=== PATIENT | female | born 1940 | race Caucasian/White ===

== ENCOUNTER → 2019-08-20 | Outpatient (CLI) | payer MEDICARE, BC ==
--- NOTE | 2019-08-20 11:19 | RAD ---
EXAM: Dual energy x-ray absorptiometry (DEXA). HISTORY: Postmenopausal female presents for osteoporosis screening. COMPARISON: None. TECHNIQUE: Dual energy x-ray absorptiometry of the lumbar spine and right hip was performed. Calculation of bone mineral density based on standard deviations above or below the expected young adult normal value (T-score) was completed. FINDINGS: The average bone mineral density in the first through third lumbar vertebrae is 1.102 g/cmxcm, corresponding with a T-score of -0.6. The average total bone mineral density in the right hip is 0.786 g/cmxcm, corresponding with a T-score of -1.4. The bone mineral density localized to the right femoral neck corresponds with a T-score of -2.6. IMPRESSION: 1. Osteopenia measured for the total right hip. There is osteoporosis measured at the right femoral neck. 2. Normal bone mineral density measured at the lumbar spine. Note: Definitions established by the World Health Organization: 1. Normal: T-score is -1.0 or above. 2. Osteopenia: T-score is between -1.0 and -2.5 . 3. Osteoporosis: T-score is -2.5 or below. Electronically signed by: Ely Munguia MD (08/20/2019 11:16 AM) [facility]
== END | disposition home or self-care (01) ==
LOC: DXRAD 09:58
PROVIDERS: ATTEND Registered Nurse
DX: M81.0 Age-related osteoporosis without current pathological fracture (principal); M85.88 Other specified disorders of bone density and structure, other site; Z78.0 Asymptomatic menopausal state
CPT/HCPCS: 77080

== ENCOUNTER → 2020-10-29 | Outpatient (CLI) | payer MEDICARE, BC ==
[2020-10-29 13:37] LABS: BASO % 1 % (0-3); EOS # 0.2 x10^3/uL (0.0-0.7); EOS % 3 % (0-3); HEMATOCRIT 43.1 % (36.0-47.0); HEMOGLOBIN 14.1 g/dL (12.0-15.5); LYMPH # 1.3 x10^3/uL (1.0-4.8); LYMPH % 26 % (24-48); MEAN CORPUSCULAR HEMOGLOBIN 30 pg (25-35); MEAN CORPUSCULAR HGB CONC 33 g/dL (31-37); MEAN CORPUSCULAR VOLUME 91 fL (79-100); MONO # 0.4 x10^3/uL (0.0-1.1); MONO % 8 % (0-9); NEUT # 3.1 x10^3uL (1.8-7.7); NEUT % 62 % (31-73); PLATELET COUNT 201 x10^3/uL (140-400); RED BLOOD COUNT 4.72 x10^6/uL (3.50-5.40); RED CELL DISTRIBUTION WIDTH 13.9 % (11.5-14.5)
[2020-10-29 13:59] LABS: ALBUMIN 4.2 g/dL (3.4-5.0); ALBUMIN/GLOBULIN RATIO 1.2 (1.0-1.7); CALCIUM 9.6 mg/dL (8.5-10.1); GFR 53.3; POTASSIUM 4.4 mmol/L (3.5-5.1); TOTAL BILIRUBIN 0.8 mg/dL (0.2-1.0); TOTAL PROTEIN 7.6 g/dL (6.4-8.2)
[2020-10-30 12:16] LABS: THYROID STIM HORMONE (TSH) 0.964 uIU/mL (0.358-3.740)
== END ==
LOC: LAB 12:02
PROVIDERS: ATTEND Internal Medicine Interventional Cardiology
DX: I10 Essential (primary) hypertension (principal)
CPT/HCPCS: 36415; 80053; 80061; 84443; 85025

== ENCOUNTER → 2020-11-15 | Outpatient (CLI) | payer MEDICARE, BC ==
[2020-11-15 13:44] LABS: CALCIUM 9.7 mg/dL (8.5-10.1); CREATININE 1.2 mg/dL (0.6-1.0); GFR 43.2; POTASSIUM 4.4 mmol/L (3.5-5.1)
== END ==
LOC: LAB 13:04
PROVIDERS: ATTEND Internal Medicine Interventional Cardiology
DX: I48.91 Unspecified atrial fibrillation (principal)
CPT/HCPCS: 36415; 80048

== ENCOUNTER → 2021-03-02 | Outpatient (CLI) | payer MEDICARE, BC ==
--- NOTE | 2021-03-02 14:04 | RAD ---
DATE: 03/02/2021 EXAM: DIGITAL DIAGNOSTIC BILATERAL HISTORY: Left breast burning pain. COMPARISON: None available. Interpreted as new baseline examination. CAD was utilized. FINDINGS: The breast parenchyma is primarily fatty replaced. A few benign calcifications are identified. There is a inner posterior left breast loop recorder. There are no dominant suspicious masses, suspicious microcalcifications or evidence of architectural distortion. IMPRESSION: No mammographic evidence of malignancy. Recommend routine screening. BI-RADS CATEGORY: 2 BENIGN FINDING RECOMMENDED FOLLOW-UP: 12M 12 MONTH FOLLOW-UP PQRS compliance statement: Patient information was entered into a reminder system with a target due date for the next mammogram. Mammography is a sensitive method for finding small breast cancers, but it does not detect them all and is not a substitute for careful clinical examination. A negative mammogram does not negate a clinically suspicious finding and should not result in delay in biopsying a clinically suspicious abnormality. "Our facility is accredited by the [employer] Mammography Program."
== END ==
LOC: MAMMO 13:24
PROVIDERS: ATTEND Physician Assistant Medical
DX: N64.4 Mastodynia (principal)
CPT/HCPCS: 77066

== ENCOUNTER → 2021-06-08 | Outpatient (CLI) | payer MEDICARE, BC ==
--- NOTE | 2021-06-08 15:22 | RAD ---
EXAM: Left knee, 3 views. HISTORY: Pain. COMPARISON: None. FINDINGS: 3 views of the left knee are obtained. There is no fracture, dislocation or subluxation. Th ere is mild medial compartment spurring and medial and lateral compartment chondrocalcinosis. There i s a small joint effusion. There is enthesopathy along the superior patella. There are benign bone isl ands. IMPRESSION: 1. 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 2. No acute osseous finding. Electronically signed by: Ely Munguia MD (06/08/2021 3:20 PM) [id number]
== END ==
LOC: RAD 14:50
PROVIDERS: ATTEND Physician Assistant Medical
DX: M17.12 Unilateral primary osteoarthritis, left knee (principal); M25.462 Effusion, left knee; M76.892 Other specified enthesopathies of left lower limb, excluding foot; M11.262 Other chondrocalcinosis, left knee
CPT/HCPCS: 73562

== ENCOUNTER → 2021-08-23 | Outpatient (CLI) | payer MEDICARE, BC ==
--- NOTE | 2021-08-23 14:18 | RAD ---
CT of the abdomen and pelvis without contrast. 08/23/2021 1:08 PM Indication: Reason: ruq pain / Spl. Instructions: / History: Comparison Study: None. Technique: Multidetector CT imaging of the abdomen pelvis is obtained without administration of contr ast. Findings: Visualized lung bases are unremarkable. The gallbladder is surgically absent. Calcified granulomas ar e noted within the liver. Many calcified granulomas are noted within the spleen, which is otherwise u nremarkable. The adrenal glands are unremarkable. Pancreas is unremarkable. The right kidney is unrem arkable. There is a partially exophytic lesion in the anterior left kidney measuring 1.2 cm in diamet er consistent with a small cyst. 2 hyperdense, rounded lesions are seen in the left mid kidney measur es 6 mm and 7 mm respectively. These most likely represent small hyperdense cysts. Attention on follo w-up studies recommended. Probable duodenal diverticulum noted. There is no evidence of bowel obstruc tion. Distal colonic diverticulosis noted without evidence of acute diverticulitis. Mildly increased stool seen throughout the colon. Findings could reflect constipation. The bladder is decompressed. Hy sterectomy noted. No free fluid or free air seen in the abdomen or pelvis. Right-sided laminectomy an d fusion changes noted at L4-S1. Artifact limits the evaluation. Bone graft material present. No acut e osseous abnormality is identified. IMPRESSION: 1.Mildly increased stool noted within the colon. Findings could reflect constipation. 2. No other acute intra-abdominal abnormality is identified CT DOSING PQRS STATEMENT: One or more of the following individualized dose reduction techniques were utilized for this examinat ion: 1. Automated exposure control 2. Adjustment of the mA and/or kV according to patient size 3. Use of iterative reconstruction technique Electronically signed by: Chin Clemons MD (08/23/2021 2:15 PM) [id number]
--- NOTE | 2021-08-23 19:44 | RAD ---
PA and lateral chest radiographs 08/23/2021 CLINICAL HISTORY: Chest pain. PA and lateral digital radiographs of the chest were obtained. No previous studies are available for comparison. The patient is post median sternotomy. The cardiac silhouette is mildly enlarged. The tho racic aorta is tortuous. Atherosclerotic calcification of the thoracic aorta is seen. No acute pulmon edna infiltrate is noted. No pneumothorax or pleural effusion is seen. Surgical clips are seen within the right upper quadrant abdomen consistent with a cholecystectomy. There is diffuse osteopenia of th e visualized bony structures. 3 small threaded screws are seen within the right humeral head. Degener ative changes are seen involving the thoracic spine. IMPRESSION: No acute abnormality is seen. Electronically signed by: Dax Araiza MD (08/23/2021 7:42 PM) [id number]
== END ==
LOC: CT 13:02
PROVIDERS: ATTEND Physician Assistant Medical
DX: K57.32 Diverticulitis of large intestine without perforation or abscess without bleeding (principal); K75.3 Granulomatous hepatitis, not elsewhere classified; R10.11 Right upper quadrant pain; N64.4 Mastodynia
CPT/HCPCS: 71046; 74176

== ENCOUNTER → 2021-11-14 | Outpatient (CLI) | payer MEDICARE, BC ==
--- NOTE | 2021-11-14 12:41 | RAD ---
EXAM: Nuclear gastric emptying scan. HISTORY: Pain. COMPARISON: None. TECHNIQUE: Serial static images were obtained over the stomach following oral administration of 2 mCi 99m-Tc sulfur colloid. FINDINGS: The stomach empties into the small bowel without evidence of reflux in the area of the esop hagus. Gastric retention percents: 1 hour 60% (normal range 34.8-91%) 2 hour 43% (normal range 2.7-60%) 3 hour 26% (normal range 0.5-28%) 4 hour 11% (normal range 0-10%) The estimated time for half emptying of gastric contents, i.e. 'gastric emptying time' is 108 minutes (normal is 66 +/- 22 minutes). IMPRESSION: Borderline delayed gastric emptying at 3 hours and 4 hours and delayed gastric emptying h soy-time. Electronically signed by: Ely Munguia MD (11/14/2021 12:38 PM) [id number]
== END ==
LOC: NM 07:45
PROVIDERS: ATTEND Internal Medicine Gastroenterology
DX: K30 Functional dyspepsia (principal)
CPT/HCPCS: 78264; A9541

== ENCOUNTER → 2021-11-28 | Outpatient (CLI) | payer MEDICARE, BC ==
--- NOTE | 2021-11-29 14:31 | RAD ---
XR BILAT FEET 3 VIEWS History: Reason: BILATERAL FEET PAIN. RIGHT WORSE THAN LEFT / Spl. Instructions: / History: Technique: 3 views bilateral feet. Comparison: None. Findings: Right foot: Mild first MTP DJD. No dislocation. No acute fracture. Tiny plantar calcaneal spur. Posto perative changes within the medial ankle. Left foot: Mild first MTP DJD. No dislocation. No acute fracture. Small plantar calcaneal spur. Impression: 1. Mild bilateral first MTP DJD, right greater than left. Electronically signed by: Maciel Alberto DO (11/29/2021 2:29 PM) [id number]
== END ==
LOC: RAD 09:42
PROVIDERS: ATTEND Podiatrist
DX: M19.071 Primary osteoarthritis, right ankle and foot (principal); M19.072 Primary osteoarthritis, left ankle and foot; M77.32 Calcaneal spur, left foot
CPT/HCPCS: 73630-50

== ENCOUNTER 2022-03-20 09:36 | Observation (INO) | payer MEDICARE, BC ==
[~2022-03-20] VITALS: Ht 152.4 cm; Wt 60.0 kg
--- NOTE | 2022-03-20 10:13 | PHYS DOC ---
Past History Additional Past Medical Histor: history of triple bipass 2004, high cholesterol Past Surgical History: Other Additional Past Surgical Histo: back surgery, shoulder surgery Alcohol Use: Rarely General Adult EDM: Chief Complaint: CHEST PAIN-CARDIAC NATURE HPI: HPI: Patient is an 81-year-old female who presents to the emergency department for chest pain. Patient reports around 530 this morning she was woken up from her sleep with left-sided chest pain she reports that it got better ended up resolving around 7:00 and she went back to bed but woke up again with the chest pain. She rates her pain 4 out of 10. The pain does not radiate. She reports taking 2 full-size aspirins prior to arrival. Chest pain is worse with deep inspiration and palpation. She describes it as a tightness. She reports shortness of breath. Patient denies any nausea, vomiting or dizziness. Patient has a history of CABG, hyperlipidemia, diabetes, GERD, hypertension. Review of Systems: Review of Systems: Respiratory: See HPI Cardiovascular: See HPI GI: See HPI Musculoskeletal: Reports chest wall tenderness with palpation Neurologic: See HPI Current Medications: Current Meds: Current Medications Medications (Trade) Dose Ordered Sig/Yue Start Time Stop Time Status Last Admin Dose Admin Aspirin (Aspirin Chewable) 324 mg 1X ONCE 03/20/22 10:15 03/20/22 10:16 Allergies: Allergies: Allergies Coded Allergies Type Severity Reaction Last Updated Verified doxycycline Allergy Mild rash and redness 03/20/22 Yes simvastatin Allergy Mild "slows me down" 03/20/22 Yes Physical Exam: PE: Constitutional: Well developed, well nourished, no acute distress, non-toxic appearance. [] HENT: Normocephalic, atraumatic, bilateral external ears normal, oropharynx moist, no oral exudates, nose normal. [] Eyes: PERRL, EOMI, conjunctiva normal, no discharge. [] Neck: Normal range of motion, no tenderness, supple, no stridor. [] Cardiovascular:Heart rate regular rhythm, no murmur [] Lungs & Thorax: Bilateral breath sounds clear to auscultation, left-sided chest wall tenderness with palpation [] Abdomen: Bowel sounds normal, soft, no tenderness, no masses, no pulsatile m asses. [] Skin: Warm, dry, no erythema, no rash. [] Back: No tenderness, normal range of motion Extremities: No tenderness, no cyanosis, no clubbing, ROM intact, no edema. [] Neurologic: Alert and oriented X 3, normal motor function, normal sensory function, no focal deficits noted. [] Psychologic: Affect normal, judgement normal, mood normal. [] Current Patient Data: Labs: Laboratory Tests Test 03/20/22 10:50 White Blood Count 6.0 x10^3/uL Red Blood Count 4.36 x10^6/uL Hemoglobin 13.2 g/dL Hematocrit 39.4 % Mean Corpuscular Volume 90 fL Mean Corpuscular Hemoglobin 30 pg Mean Corpuscular Hemoglobin Concent 34 g/dL Red Cell Distribution Width 14.3 % Platelet Count 187 x10^3/uL Neutrophils (%) (Auto) 61 % Lymphocytes (%) (Auto) 27 % Monocytes (%) (Auto) 9 % Eosinophils (%) (Auto) 3 % Basophils (%) (Auto) 1 % Neutrophils # (Auto) 3.6 x10^3uL Lymphocytes # (Auto) 1.6 x10^3/uL Monocytes # (Auto) 0.5 x10^3/uL Eosinophils # (Auto) 0.2 x10^3/uL Basophils # (Auto) 0.0 x10^3/uL Sodium Level 135 mmol/L Potassium Level 5.1 mmol/L Chloride Level 105 mmol/L Carbon Dioxide Level 22 mmol/L Anion Gap 8 Blood Urea Nitrogen 16 mg/dL Creatinine 0.8 mg/dL Estimated GFR (Cockcroft-Gault) 68.8 BUN/Creatinine Ratio 20 Glucose Level 125 mg/dL Calcium Level 9.6 mg/dL Total Bilirubin 1.0 mg/dL Aspartate Amino Transf (AST/SGOT) 46 U/L Alanine Aminotransferase (ALT/SGPT) 33 U/L Alkaline Phosphatase 52 U/L Troponin I High Sensitivity 12 ng/L Total Protein 7.7 g/dL Albumin 4.0 g/dL Albumin/Globulin Ratio 1.1 Current Medications Medications (Trade) Dose Ordered Sig/Yue Route PRN Reason Start Time Stop Time Status Last Admin Dose Admin Aspirin (Aspirin Chewable) 324 mg 1X ONCE PO 03/20/22 10:15 03/20/22 10:10 DC Morphine Sulfate (Morphine 2mg Syringe) 2 mg 1X ONCE IV 03/20/22 10:30 03/20/22 10:31 DC 03/20/22 11:10 Vital Signs: Vital Signs Date Time Temp Pulse Resp B/P (MAP) Pulse Ox O2 Delivery O2 Flow Rate FiO2 03/20/22 09:46 98.3 75 20 156/71 (99) Room Air EKG: EKG: EKG performed by ER staff at 935 shows sinus rhythm with a rate of 66, QTc is 472, no STEMI Radiology/Procedures: Radiology/Procedures: []PROCEDURE: PORTABLE CHEST 1V EXAMINATION: Chest radiograph. VIEWS: Single AP view of the chest COMPARISON: 08/17/2021 INDICATION:81 years, Female, chest pain. FINDINGS: Normal cardiomediastinal silhouette. Tortuous thoracic aorta with associated atherosclerotic disease. Median sternotomy wires are intact. Increased bibasilar interstitial reticulations. No focal consolidation. No pleural effusion or pneumothorax. No acute osseous process. IMPRESSION: Increased bibasilar reticulations may represent mild interstitial pulmonary edema and/or atypical pneumonia. Electronically signed by: Kat Roberts DO (03/20/2022 10:22 AM) [facility] DICTATED AND SIGNED BY: KAT ROBERTS DO DATE: 03/20/22 1019 CC: EMERGENCY,DEPARTMENT; [facility] APRN; BOB MONTGOMERY PA ~ Heart Score: C/O Chest Pain: Yes HEART Score for Chest Pain: HEART Score for Chest Pain Response (Comments) Value History Moderately Suspicious 1 ECG Nonspecific Repolarizatio 1 Age > 65 2 Risk Factors >3 Risk Factors or Hx CAD 2 Troponin < Normal Limit 0 Total 6 Risk Factors: Risk Factors: DM, Current or recent (<one month) smoker, HTN, HLP, family history of CAD, obesity. Risk Scores: Score 0 - 3: 2.5% MACE over next 6 weeks - Discharge Home Score 4 - 6: 20.3% MACE over next 6 weeks - Admit for Clinical Observation Score 7 - 10: 72.7% MACE over next 6 weeks - Early Invasive Strategies Course & Med Decision Making: Course & Med Decision Making Pertinent Labs and Imaging studies reviewed. (See chart for details) [] Patient presents to the emergency department for left-sided chest pain. The chest pain is reproducible with deep inspiration and palpation. Patient reports taking 2 full-strength aspirins prior to ER arrival. Patient does have significant risk factors including coronary artery bypass, hyperlipidemia, diabetes, age and hypertension. Patient's lab work is unremarkable, her troponin was 12. Patient's chest x-ray shows bibasilar reticulations which could indicate mild interstitial pulmonary edema versus pneumonia per the radiologist. She will be given a dose of antibio tics. Patient's heart score is 6 and she has significant risk factors. Patient was treated with pain medication but reports that that did not improve her chest pain, she was given nitroglycerin and as needed pain medication. Patient will need to be monitored in the emergency department and have serial troponins ordered. I discussed patient's case with Dr. Augustin who agreed to admit the patient under his services. ER bridge orders placed at this time 1147. I discussed patient's findings with her as well as care plan she is agreeable to admission. Ronnie Disclaimer: Ronnie Disclaimer: This electronic medical record was generated, in whole or in part, using a voice recognition dictation system. Departure Departure: Impression: Primary Impression: Chest pain Qualified Codes: R07.9 - Chest pain, unspecified Disposition: ADMITTED INPATIENT Admitting Physician: Sohail Augustin Condition: STABLE Referrals: BOB MONTGOMERY (PCP) [facility] [employer] ATTENDANT Mar 20, 2022 10:13
[2022-03-20] MEDS ORDERED: ASPIRIN CHEWABLE 81 MG TABLET. PO ONE (10:15)
--- NOTE | 2022-03-20 10:24 | RAD ---
EXAMINATION: Chest radiograph. VIEWS: Single AP view of the chest COMPARISON: 08/17/2021 INDICATION:81 years, Female, chest pain. FINDINGS: Normal cardiomediastinal silhouette. Tortuous thoracic aorta with associated atherosclerotic disease. Median sternotomy wires are intact. Increased bibasilar interstitial reticulations. No focal consoli dation. No pleural effusion or pneumothorax. No acute osseous process. IMPRESSION: Increased bibasilar reticulations may represent mild interstitial pulmonary edema and/or atypical pne umonia. Electronically signed by: Caleb Roberts DO (03/20/2022 10:22 AM) [facility]
[2022-03-20] MEDS ORDERED: MORPHINE SULFATE 2 MG/ML DISP.SYRIN. IV ONE (10:30)
[2022-03-20 11:11] LABS: BASO % 1 % (0-3); EOS # 0.2 x10^3/uL (0.0-0.7); EOS % 3 % (0-3); HEMATOCRIT 39.4 % (36.0-47.0); HEMOGLOBIN 13.2 g/dL (12.0-15.5); LYMPH # 1.6 x10^3/uL (1.0-4.8); LYMPH % 27 % (24-48); MEAN CORPUSCULAR HEMOGLOBIN 30 pg (25-35); MEAN CORPUSCULAR HGB CONC 34 g/dL (31-37); MEAN CORPUSCULAR VOLUME 90 fL (79-100); MONO # 0.5 x10^3/uL (0.0-1.1); MONO % 9 % (0-9); NEUT # 3.6 x10^3uL (1.8-7.7); NEUT % 61 % (31-73); PLATELET COUNT 187 x10^3/uL (140-400); RED BLOOD COUNT 4.36 x10^6/uL (3.50-5.40); RED CELL DISTRIBUTION WIDTH 14.3 % (11.5-14.5)
[2022-03-20 11:18] LABS: CALCIUM 9.6 mg/dL (8.5-10.1); CREATININE 0.8 mg/dL (0.6-1.0); GFR 68.8
[2022-03-20 11:20] LABS: POTASSIUM 5.1 mmol/L (3.5-5.1)
[2022-03-20 11:23] LABS: ALBUMIN/GLOBULIN RATIO 1.1 (1.0-1.7); TOTAL PROTEIN 7.7 g/dL (6.4-8.2)
[2022-03-20] MEDS ORDERED: MORPHINE SULFATE 2 MG/ML DISP.SYRIN. IVP PRN (12:00)
[2022-03-20] MEDS: NITROGLYCERIN SUBLINGUAL 0.4 MG BOTTLE OF 25. SL PRN ×2 (12:07→12:29)
[2022-03-20] MEDS ORDERED: cefTRIAXone SODIUM 1 GM VIAL ONE (12:16)
[2022-03-20] MEDS ORDERED: IV NORMAL SALINE 50ML 50 ML ONE (12:16)
[2022-03-20 14:25] VITALS: BP 126/68
--- NOTE | 2022-03-20 17:22 | HP ---
DATE OF SERVICE: 03/20/2022 ADMIT DATE: 03/20/2022 HISTORY OF PRESENT ILLNESS: The patient is an 81-year-old female patient who presented to the Emergency Room of [facility] with a complaint of chest pain that she rated around 8/10 that she was awakened because of that around 5:30 this morning from sleep with pain was mostly in the retrosternal left sided chest pain. Event that the pain has apparently resolved around 7:00 a.m. and she went back to bed, but woke up again with the chest pain. She rates her pain about 4/10. She denies any radiation. She reports taking 2 full-size aspirin prior to arrival. Deep breath makes her pain worse and palpation, she describes as tightness. She reports shortness of breath, but denied any nausea, vomiting or diaphoresis. The patient has had coronary artery disease status post triple bypass in 2003 and she was extensively investigated. She had an EKG done, which showed that she was in sinus rhythm at a rate of 66 with a corrected QT interval of [address] segment elevation myocardial infarction. Her chest x-ray showed increased bibasilar reticulation that represents mild interstitial pulmonary edema and/or atypical pneumonia. She has had lab work done, showed that her CBC was unremarkable. Her chemistry showed she had mild hyperkalemia; however, her first set of troponin I high sensitivity was only 12. Her coronavirus by rapid antigen testing was negative. The patient was admitted given that she has multiple risk factors for coronary artery disease, to do two more sets of cardiac enzymes, check fasting lipid profile and also consult the Cardiology team. PAST MEDICAL HISTORY: Significant for hypertension, hyperlipidemia, type 2 diabetes mellitus. She has also osteoporosis and gastroesophageal reflux disease. PAST SURGICAL HISTORY: Significant for coronary artery bypass graft surgery, PCI with stent deployment, right shoulder surgery, hemorrhoidectomy, back surgery low back, bilateral cataract extraction, appendectomy and total abdominal hysterectomy, bilateral salpingo-oophorectomy. ALLERGIES: She is allergic to DOXYCYCLINE and SIMVASTATIN. MEDICATIONS: She is currently on following medications: She is on sertraline 50 mg once a day, gabapentin 300 mg 2 capsules 4 times a day, Zetia 10 mg at bedtime, Crestor 40 mg daily, aspirin 81 mg once a day, Trulicity 1 injection once a week, amlodipine besylate 2.5 mg 1 tablet at bedtime, famotidine 20 mg at bedtime, ibandronate 100 mg once a month and vitamin D3 [employer] [address] 2 tablets once a day and Protonix 40 mg twice a day. FAMILY HISTORY: She is the only child. Her dad at the age of 89 and mother at age of 94. SOCIAL HISTORY: She is . She has 2 children. Her son at age of 54. Daughter still alive. She has never smoked, drinks alcohol occasionally and does not use any drugs. She did multiple jobs throughout her life. She is currently retired. REVIEW OF SYSTEMS: As per history of present illness. PHYSICAL EXAMINATION: GENERAL: On arrival to the Emergency Room, she looked well and was clearly in no apparent respiratory distress. Slightly pale, but no jaundice, cyanosis, no lymphadenopathy, no thyromegaly, no jugular venous distention. No limb edema. VITAL SIGNS: Her heart rate was 75, blood pressure was 156/71, temperature was 98.3, respiratory rate 20 and oxygen saturation was 100% on room air. HEAD, EYES, EARS, NOSE, AND THROAT: Normocephalic, atraumatic. NECK: Supple. HEART: Showed normal first and second heart sounds. No gallop, rub or murmur. CHEST: Clear to auscultation. No crepitation or rhonchi. ABDOMEN: Distended, soft, nontender. NEUROLOGIC: She was grossly intact. LABORATORY DATA: She was seen in the Emergency Room, has had lab work, showed a white cell count of 6000, hemoglobin 13, hematocrit 39, MCV 90 and platelet count of 187,000 with normal manual differential. Her chemistry showed a serum sodium 135, potassium 5.1, chloride 105, bicarbonate 22, anion gap of 8, BUN 18, creatinine was 0.8. Estimated GFR was 68 mL per minute. Her glucose 125, calcium was 9.6. Total bilirubin normal. Alkaline phosphatase and ALT are normal. AST slightly elevated. Her troponin I high sensitivity was 12. Total protein 7.7, albumin was 4. Her coronavirus by rapid antigen testing was negative. Her chest x-ray showed that there is increased bibasilar reticulation, represents mild interstitial pulmonary edema versus atypical pneumonia. ASSESSMENT AND PLAN: The patient was admitted with chest pain that awakened the patient from sleep. She has multiple risk factors for coronary artery disease. She is known to have hypertension, hyperlipidemia, type 2 diabetes mellitus. She has already had coronary artery bypass surgery and stent deployment. Plan is to reconcile all her medications and do two more sets of cardiac enzymes, check her fasting lipid profile and consult the monument mason tomorrow. MANI DR: Carlos TID: [id number]
[2022-03-20] MEDS ORDERED: PANT40TA6 PO (18:31)
[2022-03-20] MEDS ORDERED: AMLO2.5T5 PO (18:31)
[2022-03-20] MEDS ORDERED: FAMO20TA5 PO (18:31)
[2022-03-20] MEDS ORDERED: CRESTOR40 MG PO (18:31)
[2022-03-20] MEDS ORDERED: SERT50TA PO (18:31)
[2022-03-20] MEDS ORDERED: IBAN150T20 PO (18:31)
[2022-03-20] MEDS ORDERED: ASPI-630 PO (18:31)
[2022-03-20] MEDS ORDERED: EZET10TA20 PO (18:31)
[2022-03-20] MEDS ORDERED: GABA600T7 PO (18:31)
[2022-03-20] MEDS ORDERED: NON FORMULARY ITEM (Gabapentin 600 MG) PO PRN (18:45)
--- NOTE | 2022-03-20 18:45 | NUR ---
PT ARRIVED TO ROOM 123 FROM ED ON PREVIOUS SHIFT. REPORT RECEIVED FROM KARIN OAKLEY. PT HERE FOR C/O CHEST PAIN THAT WOKE HER FROM SLEEP TWICE THIS MORNING. PT DESCRIBED TIGHTNESS IN THE LEFT SIDE OF HER CHEST, RATED 8/10. PT WITH SIGNIFICANT CARDIAC HX, INCLUDING MANY CARDIAC CATHS AND CABG WITH MULT. STENTS. DR. MAI CONSULTED, WILL SEE IN AM. POC DISCUSSED, V/U. CALL LIGHT IN REACH. PT DENIES CURRENT CP. RESTING COMFORTABLY IN BED WITH MUSIC PLAYING ON TABLET.
[2022-03-20 19:00] VITALS: BP 122/62
[2022-03-20] MEDS ORDERED: EZETIMIBE 10 MG TABLET PO SCH (21:00)
[2022-03-20] MEDS ORDERED: amLODIPine BESYLATE 2.5 MG TABLET PO SCH (21:00)
[2022-03-20] MEDS ORDERED: ATORVASTATIN CALCIUM 20 MG TABLET PO SCH (21:00)
[2022-03-20] MEDS ORDERED: FAMOTIDINE 20 MG TABLET PO SCH (21:00)
[2022-03-20] MEDS: PANTOPRAZOLE 40 MG TABLET. PO SCH (21:04)
[2022-03-20 23:00] VITALS: BP 117/63
[2022-03-21 05:00] VITALS: BP 145/73
[2022-03-21 06:23] LABS: BASO % 1 % (0-3); EOS # 0.2 x10^3/uL (0.0-0.7); EOS % 5 % (0-3); HEMATOCRIT 39.9 % (36.0-47.0); HEMOGLOBIN 13.3 g/dL (12.0-15.5); LYMPH # 1.1 x10^3/uL (1.0-4.8); LYMPH % 28 % (24-48); MEAN CORPUSCULAR HEMOGLOBIN 30 pg (25-35); MEAN CORPUSCULAR HGB CONC 33 g/dL (31-37); MEAN CORPUSCULAR VOLUME 91 fL (79-100); MONO # 0.4 x10^3/uL (0.0-1.1); MONO % 10 % (0-9); NEUT # 2.4 x10^3uL (1.8-7.7); NEUT % 57 % (31-73); PLATELET COUNT 159 x10^3/uL (140-400); RED BLOOD COUNT 4.37 x10^6/uL (3.50-5.40); RED CELL DISTRIBUTION WIDTH 13.9 % (11.5-14.5); WHITE BLOOD COUNT 4.1 x10^3/uL (4.0-11.0)
[2022-03-21 06:40] LABS: ALBUMIN 3.5 g/dL (3.4-5.0); ALBUMIN/GLOBULIN RATIO 1.3 (1.0-1.7); CALCIUM 8.9 mg/dL (8.5-10.1); CREATININE 0.9 mg/dL (0.6-1.0); GFR 60.1; POTASSIUM 4.3 mmol/L (3.5-5.1); TOTAL BILIRUBIN 0.8 mg/dL (0.2-1.0); TOTAL PROTEIN 6.2 g/dL (6.4-8.2)
--- NOTE | 2022-03-21 08:29 | PDOC2 ---
SUKUMAR VIEYRA APRN 03/21/22 0829: CARDIAC CONSULT DATE OF CONSULT DOS: DATE: 03/21/22 TIME: 08:25 REASON FOR CONSULT Reason for Consult Chest pain REFERRING PHYSICIAN Referring Physician Rosetta Dunlap APRN SOURCE Source: Chart review, Patient HPI History of Present Illness This is an 81 yo female who presented secondary to chest pain. Patient reports waking up with pain yesterday morning around 5:30. Located in her left chest. Describes as intense stabbing pain. Radiated through to her back. [place] short of breath. Took two ASA and laid back down in bed. Woke back up later and pain persisted, although was less intense, so she came to the ED for further evaluations and treatment. Has some mild pain again yesterday afternoon, but is feeling much better today. PAST MEDICAL HISTORY Cardiovascular: AFIB, CAD, HTN, hyperipidemia GI: GERD Endocrine: Diabetes PAST SURGICAL HISTORY Past Surgical History: CABG, Hysterectomy, Other (right shoulder surgery) FAMILY HISTORY Family History: Other (noncontributory ) SOCIAL HISTORY Smoke: No ALCOHOL: none Drugs: None Lives: Alone CURRENT MEDICATIONS Current Medications Current Medications Aspirin (Aspirin Chewable) 324 mg 1X ONCE PO ; Start 03/20/22 at 10:15; Stop 03/20/22 at 10:10; Status DC Morphine Sulfate (Morphine 2mg Syringe) 2 mg 1X ONCE IV Last administered on 03/20/22at 11:10; Start 03/20/22 at 10:30; Stop 03/20/22 at 10:31; Status DC Nitroglycerin (Nitrostat) 0.4 mg PRN Q5MIN PRN SL CHEST PAIN Last administered on 03/20/22at 12:29; Start 03/20/22 at 11:45 Morphine Sulfate (Morphine 2mg Syringe) 2 mg PRN Q2HR PRN IVP PAIN Last administered on 03/20/22at 14:02; Start 03/20/22 at 12:00; Stop 03/21/22 at 11:59 Ceftriaxone Sodium 1 gm/ Sodium Chloride 50 ml @ 100 mls/hr 1X ONCE IV Last administered on 03/20/22at 12:20; Start 03/20/22 at 12:15; Stop 03/20/22 at 12:44; Status DC Sodium Chloride 50 ml @ As Directed STK-MED ONCE .ROUTE ; Start 03/20/22 at 12:16; Stop 03/20/22 at 12:17; Status DC Ceftriaxone Sodium (Rocephin) 1 gm STK-MED ONCE .ROUTE ; Start 03/20/22 at 12:16; Stop 03/20/22 at 12:17; Status DC Amlodipine Besylate (Norvasc) 2.5 mg HS PO Last administered on 03/20/22at 21:04; Start 03/20/22 at 21:00 Aspirin (Aspirin Chewable) 81 mg DAILY PO ; Start 03/21/22 at 09:00 EZETIMIBE (Zetia) 10 mg QHS PO Last administered on 03/20/22at 21:04; Start 03/20/22 at 21:00 Famotidine (Pepcid) 20 mg HS PO Last administered on 03/20/22at 21:04; Start 03/20/22 at 21:00 Pantoprazole Sodium (Protonix) 40 mg BID PO Last administered on 03/20/22at 21:04; Start 03/20/22 at 21:00 Sertraline HCl (Zoloft) 50 mg DAILY PO ; Start 03/21/22 at 09:00 Non-Formulary Medication (Gabapentin ) 600 mg QID PRN PO MILD PAIN 1-3; Start 03/20/22 at 18:45; Status UNV Non-Formulary Medication (Ibandronate Sodium ) 1 tab QMONTH PO ; Start 04/19/22 at 09:00; Status UNV Atorvastatin Calcium (Lipitor) 80 mg QHS PO Last administered on 03/20/22at 21:03; Start 03/20/22 at 21:00 Active Scripts Active Reported Pantoprazole Sodium 40 Mg Tablet.dr 40 Mg PO BID Ibandronate Sodium 150 Mg Tablet 1 Tab PO QMONTH 30 Days Famotidine 20 Mg Tablet 20 Mg PO HS Amlodipine Besylate 2.5 Mg Tablet 1 Tab PO HS Aspirin 81 Mg Tab.chew 81 Mg PO DAILY Crestor (Rosuvastatin Calcium) 40 Mg Tablet 1 Tab PO DAILY Zetia (Ezetimibe) 10 Mg Tablet 1 Tab PO HS PRN 30 Days Gabapentin 600 Mg Tablet 600 Mg PO QID PRN Zoloft (Sertraline Hcl) 50 Mg Tablet 1 Tab PO DAILY ALLERGIES Allergies: Coded Allergies: doxycycline (Verified Allergy, Mild, rash and redness, 03/20/22) simvastatin (Verified Allergy, Mild, "slows me down", 03/20/22) ROS Review of Systems 14 point ROS conducted with pertinent positives noted above in hPI PHYSICAL EXAM General: Alert, Oriented X3, Cooperative, No acute distress HEENT: Atraumatic Lungs: Clear to auscultation, Other Heart: Regular rate Abdomen: Soft, No tenderness Extremities: No edema, Normal pulses Skin: No breakdown Neuro: Normal speech, Sensation intact Psych/Mental Status: Mental status NL, Mood NL MUSCULOSKELETAL: Osteoarthritic changes both hands VITALS Vital Signs Vital Signs Date Time Temp Pulse Resp B/P (MAP) Pulse Ox O2 Delivery O2 Flow Rate FiO2 03/21/22 05:00 98.4 62 16 145/73 (97) 98 Room Air LABS LABS Laboratory Tests Test 03/20/22 10:50 03/20/22 13:28 03/20/22 13:45 03/20/22 16:50 White Blood Count 6.0 x10^3/uL (4.0-11.0) Red Blood Count 4.36 x10^6/uL (3.50-5.40) Hemoglobin 13.2 g/dL (12.0-15.5) Hematocrit 39.4 % (36.0-47.0) Mean Corpuscular Volume 90 fL (79-100) Mean Corpuscular Hemoglobin 30 pg (25-35) Mean Corpuscular Hemoglobin Concent 34 g/dL (31-37) Red Cell Distribution Width 14.3 % (11.5-14.5) Platelet Count 187 x10^3/uL (140-400) Neutrophils (%) (Auto) 61 % (31-73) Lymphocytes (%) (Auto) 27 % (24-48) Monocytes (%) (Auto) 9 % (0-9) Eosinophils (%) (Auto) 3 % (0-3) Basophils (%) (Auto) 1 % (0-3) Neutrophils # (Auto) 3.6 x10^3uL (1.8-7.7) Lymphocytes # (Auto) 1.6 x10^3/uL (1.0-4.8) Monocytes # (Auto) 0.5 x10^3/uL (0.0-1.1) Eosinophils # (Auto) 0.2 x10^3/uL (0.0-0.7) Basophils # (Auto) 0.0 x10^3/uL (0.0-0.2) Sodium Level 135 mmol/L (136-145) Potassium Level 5.1 mmol/L (3.5-5.1) Chloride Level 105 mmol/L (98-107) Carbon Dioxide Level 22 mmol/L (21-32) Anion Gap 8 (6-14) Blood Urea Nitrogen 16 mg/dL (7-20) Creatinine 0.8 mg/dL (0.6-1.0) Estimated GFR (Cockcroft-Gault) 68.8 BUN/Creatinine Ratio 20 (6-20) Glucose Level 125 mg/dL (70-99) Calcium Level 9.6 mg/dL (8.5-10.1) Total Bilirubin 1.0 mg/dL (0.2-1.0) Aspartate Amino Transf (AST/SGOT) 46 U/L (15-37) Alanine Aminotransferase (ALT/SGPT) 33 U/L (14-59) Alkaline Phosphatase 52 U/L (46-116) Troponin I High Sensitivity 12 ng/L (4-50) 10 ng/L (4-50) 11 ng/L (4-50) Total Protein 7.7 g/dL (6.4-8.2) Albumin 4.0 g/dL (3.4-5.0) Albumin/Globulin Ratio 1.1 (1.0-1.7) SARS-CoV-2 Antigen (Rapid) Negative (NEGATIVE) Test 03/21/22 06:00 White Blood Count 4.1 x10^3/uL (4.0-11.0) Red Blood Count 4.37 x10^6/uL (3.50-5.40) Hemoglobin 13.3 g/dL (12.0-15.5) Hematocrit 39.9 % (36.0-47.0) Mean Corpuscular Volume 91 fL (79-100) Mean Corpuscular Hemoglobin 30 pg (25-35) Mean Corpuscular Hemoglobin Concent 33 g/dL (31-37) Red Cell Distribution Width 13.9 % (11.5-14.5) Platelet Count 159 x10^3/uL (140-400) Neutrophils (%) (Auto) 57 % (31-73) Lymphocytes (%) (Auto) 28 % (24-48) Monocytes (%) (Auto) 10 % (0-9) Eosinophils (%) (Auto) 5 % (0-3) Basophils (%) (Auto) 1 % (0-3) Neutrophils # (Auto) 2.4 x10^3uL (1.8-7.7) Lymphocytes # (Auto) 1.1 x10^3/uL (1.0-4.8) Monocytes # (Auto) 0.4 x10^3/uL (0.0-1.1) Eosinophils # (Auto) 0.2 x10^3/uL (0.0-0.7) Basophils # (Auto) 0.0 x10^3/uL (0.0-0.2) Sodium Level 141 mmol/L (136-145) Potassium Level 4.3 mmol/L (3.5-5.1) Chloride Level 108 mmol/L (98-107) Carbon Dioxide Level 26 mmol/L (21-32) Anion Gap 7 (6-14) Blood Urea Nitrogen 16 mg/dL (7-20) Creatinine 0.9 mg/dL (0.6-1.0) Estimated GFR (Cockcroft-Gault) 60.1 BUN/Creatinine Ratio 18 (6-20) Glucose Level 130 mg/dL (70-99) Calcium Level 8.9 mg/dL (8.5-10.1) Total Bilirubin 0.8 mg/dL (0.2-1.0) Aspartate Amino Transf (AST/SGOT) 313 U/L (15-37) Alanine Aminotransferase (ALT/SGPT) 316 U/L (14-59) Alkaline Phosphatase 117 U/L (46-116) Total Protein 6.2 g/dL (6.4-8.2) Albumin 3.5 g/dL (3.4-5.0) Albumin/Globulin Ratio 1.3 (1.0-1.7) ECHOCARDIOGRAM Echocardiogram October 29, 2020 echo Doppler: Normal left ventricular systolic function. Grade 2 diastolic dysfunction with elevated left atrial pressures. Mild mitral regurgitation and mild tricuspid regurgitation. Estimated pulmonary arterial pressures of 32 mmHg. STRESS TEST Stress Test October 26, 2020 stress thallium: No evidence of any significant ischemia. Norm al left ventricular function. HEART CATH Heart Cath October 2019 cardiac catheterization: WIGGINS to the LAD was patent; her vein graft to the obtuse marginal branch was patent, and her vein graft, which is a jump graft to the diagonal, was also patent. She had a moderate in-stent restenoses of the right coronary artery, which was negative by a fractional flow reserve. No stents were placed. ASSESSMENT/PLAN Assessment/Plan 1. Chest pain with typical features. AMI ruled out 2. CAD s/p remote CABG x3 and subsequent PCI/stent to the RCA. [facility] 11/13 showed moderate in-stent restenoses of the RCA, which was negative by a fractional flow reserve as noted above. Follow with Dr. Celine HUMPHRIES 3. AFIB s/p previous ablation therapy. Presently SR 4. Hypertension; controlled 5. Hyperlipidemia; statin 6. Diabetes, II 7. Elevated LFTs Recommendations Continue secondary prevention Discussed various treatment options with stress testing versus cardiac catheterization. Patient reports pain to be very similar to what she has experience previously when she needed bypass and subsequent PCI/stenting and is requesting cardiac catheterization. Patient is not interested in having further workup or cardiac catheterization at [facility] and will only have this conducted at [facility] Will attempt transfer to [facility] again today. LULU BIGGS MD 03/22/22 1936: CARDIAC CONSULT ASSESSMENT/PLAN Assessment/Plan Late entry for 03/21/2022 Patient seen and examined. Agree with above nurse practitioner note. Patient has agreed to be transferred to [facility]. Plan for cardiac catheterization at [facility]. SUKUMAR VIEYRA APRN Mar 21, 2022 08:29 LULU BIGGS MD Mar 22, 2022 19:36
[2022-03-21] MEDS ORDERED: SERTRALINE 50 MG TABLET. PO SCH (09:00)
[2022-03-21] MEDS ORDERED: ASPIRIN CHEWABLE 81 MG TABLET. PO SCH (09:00)
[2022-03-21] MEDS: PANTOPRAZOLE 40 MG TABLET. PO SCH (09:55)
[2022-03-21 10:49] VITALS: BP 146/73
--- NOTE | 2022-03-21 16:41 | NUR ---
AFTER SPEAKING WITH SUKUMAR VIEYRA AND DR SHELLEY THE PATIENT MADE THE DECISION TO BE TRANSFERRED TO [facility] FOR A CARDIAC CATH PROCEDURE. PATIENT WAS TRANSFERRED TO CARDIAC CATHETERIZATION LAB [facility] FOR OBSERVATION WHILE WAITING FOR THE PROCEDURE. REPORT WAS CALLED AND PACKET OF PATIENT OF INFORMATION WAS SENT WITH EMS PERSONNEL.
[2022-03-21 21:26] LABS: CHOLESTEROL/HDL RATIO 1.7
--- NOTE | 2022-03-21 22:41 | DS ---
DATE OF DISCHARGE: 03/21/2022 HOSPITAL COURSE: The patient is an 81-year-old female patient who came to the Emergency Room with a complaint of chest pain that has recurred and awakened her actually from sleep. She has had an EKG, which showed that she was in sinus rhythm at a rate of 66 with corrected QT interval of 472 milliseconds, no ST segment elevation myocardial infarction. Her chest x-ray showed increased bibasilar reticulation that may represent mild interstitial pulmonary edema and/or atypical pneumonia. She has had 3 sets of cardiac enzyme that basically were ruled out acute myocardial infarction, but apparently she was evaluated by the Cardiology nurse practitioner and apparently she has had a cardiac catheterization with apparently in-stent restenosis of the right coronary artery and therefore, a decision was made to transfer her to [facility] for a left heart catheterization as the patient has been reporting pain to be very similar to what she has experienced previously when she needs bypass and subsequent PCI and stent deployment and was requesting cardiac catheterization. PHYSICAL EXAMINATION: GENERAL: On examining her before transfer, she looked well and was clearly in no apparent respiratory distress. No pallor, jaundice, cyanosis, or thyromegaly. No jugular venous distention. No limb edema. VITAL SIGNS: Her heart rate was 69, blood pressure was 146/73, temperature 98.4, respiratory rate was 18 and oxygen saturation was 98% on room air. The rest of clinical exam stable. LABORATORY DATA: Her lab work this morning showed a white cell count 4.1, hemoglobin 13.3, hematocrit 39, MCV 91, and platelet count of 159,000. Her chemistry showed a serum sodium 141, potassium 4.3, chloride 108, bicarbonate 26, anion gap of 7, BUN 16, creatinine 0.9. Estimated GFR is 60 mL per minute. Her glucose 130, calcium was 8.9. Her total bilirubin was 0.8, however, AST, ALT, alkaline phosphatase has dramatically risen. She has 3 sets of troponin that were 12, 10, and 11, total protein 6.2, albumin was 3.5. DISCHARGE MEDICATIONS: She was transferred to [facility] to continue on amlodipine 2.5 mg once a day, aspirin 81 mg once a day, Zetia 10 mg once a day, famotidine 20 mg at bedtime, gabapentin 600 mg 4 times a day, ibandronate sodium 150 mg once a month, pantoprazole 40 mg twice a day, and Crestor 40 mg at bedtime, and sertraline or Zoloft 50 mg daily. FINAL DISCHARGE DIAGNOSES: 1. Chest pain, atypical, acute myocardial infarction ruled out. 2. Coronary artery disease, status post remote coronary artery bypass graft x3 and subsequent percutaneous coronary intervention with stent deployment. 3. Atrial fibrillation, status post previous ablation therapy. Currently in sinus rhythm. 4. Hypertension, well controlled. 5. Hyperlipidemia, on Crestor. 6. Type 2 diabetes mellitus. 7. Elevated LFTs, has risen this morning. MERY DR: Carlos TID: [id number]
--- NOTE | 2022-03-22 19:03 | EKG ---
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
--- NOTE | 2022-03-22 19:03 | EKG ---
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
[2022-04-19] MEDS ORDERED: IBANDRONATE SODIUM PO SCH (09:00)
== END 2022-03-21 15:00 | disposition short-term general hospital (02) ==
LOC: ER 09:36 → ER HOLD 11:49 → INTOOBSV 11:49 → 1 SOUTH 15:20
PROVIDERS: ADMIT Internal Medicine; ATTEND Internal Medicine
DX: R07.89 Other chest pain (principal); Z20.822 Contact with and (suspected) exposure to COVID-19; I10 Essential (primary) hypertension; I25.10 Atherosclerotic heart disease of native coronary artery without angina pectoris; I48.91 Unspecified atrial fibrillation; M81.0 Age-related osteoporosis without current pathological fracture; E11.9 Type 2 diabetes mellitus without complications; K21.9 Gastro-esophageal reflux disease without esophagitis; E78.00 Pure hypercholesterolemia, unspecified; E78.5 Hyperlipidemia, unspecified; E87.5 Hyperkalemia; Z90.710 Acquired absence of both cervix and uterus; Z95.1 Presence of aortocoronary bypass graft; Z95.5 Presence of coronary angioplasty implant and graft; Z98.41 Cataract extraction status, right eye; Z98.42 Cataract extraction status, left eye; Z79.82 Long term (current) use of aspirin; Z79.899 Other long term (current) drug therapy; Z98.890 Other specified postprocedural states
CPT/HCPCS: 36415; 71045; 80053; 80061; 84484; 85025; 87426; 93005; 96365; 96375; 96376; 99285; G0378; J0696; J2270; U0003; 96368; G0379